=== PATIENT | female | born 1985 | race Caucasian/White ===

== ENCOUNTER 2019-03-12 20:54 | Emergency (ER) | payer OTHER ==
[2019-03-12 21:05] VITALS: TEMP 98; BMI 25.0
--- NOTE | 2019-03-12 21:07 | PDOC ---
Rapid Medical Evaluation Medical Evaluation: Allergies Allergy/AdvReac Type Severity Reaction Status Date / Time amoxicillin Allergy Verified 03/12/19 21:00 03/12/19 21:02 Pt presents to the ER with RLQ pain/flank pain since 5pm this evening. Pt was here with similar issues one month ago and diagnosed with an ovarian cyst. Denies n/v, dysuria, hematuria. Last period was 02/21 Exam: TTP RLQ/adenxal area, R flank pain Orders: Labs, TVUS, IV, urine Pt to proceed to the ER for further evaluation Discharge Disposition - Diagnosis Abdominal pain Qualifiers: Abdominal location: right lower quadrant Qualified Code(s): R10.31 - Right lower quadrant pain - Referrals - Patient Instructions - Post Discharge Activity
[2019-03-12 21:41] LABS: EOS % 0.8 % (0-4.5); HEMATOCRIT 37.6 % (32.4-45.2); HEMOGLOBIN 12.4 GM/dL (10.7-15.3); LYMPH % 30.1 % (8-40); MCH 30.5 pg (25.7-33.7); MCHC 32.9 g/dl (32.0-36.0); MEAN CELL VOLUME 92.7 fl (80-96); MEAN PLT VOLUME 9.2 fl (7.5-11.1); NEUT % 62.1 % (42.8-82.8); PLATELET COUNT 303 K/MM3 (134-434); RBC 4.06 M/mm3 (3.60-5.2); RDW 13.4 % (11.6-15.6); WHITE BLOOD COUNT 14.6 K/mm3 (4.0-10.0)
[2019-03-12 21:42] LABS: URINE APPEARANCE CLEAR; URINE BILIRUBIN NEGATIVE (NEGATIVE); URINE COLOR YELLOW; URINE GLUCOSE (UA) NEGATIVE (NEGATIVE); URINE KETONE TRACE (NEGATIVE); URINE LEUK ESTERASE NEGATIVE (NEGATIVE); URINE NITRITE NEGATIVE (NEGATIVE); URINE PROTEIN NEGATIVE (NEGATIVE)
[2019-03-12] MEDS ORDERED: LIDOCAINE PATCH REMOVAL MC SCH (22:00)
[2019-03-12 22:13] LABS: ALBUMIN 3.7 g/dl (3.4-5.0); BILIRUBIN,TOTAL 0.4 mg/dL (0.2-1); BLOOD UREA NITROGEN 10.4 mg/dL (7-18); CALCIUM 8.9 mg/dL (8.5-10.1); CREATININE 0.7 mg/dL (0.55-1.3); POTASSIUM 4.1 mmol/L (3.5-5.1); TOT PROT 6.9 g/dl (6.4-8.2)
--- NOTE | 2019-03-12 22:50 | PDOC ---
Attending Attestation - Resident Resident Name: OrlandoZainab - ED Attending Attestation I have performed the following: I have examined & evaluated the patient, The case was reviewed & discussed with the resident, I agree w/resident's findings & plan - HPI HPI: 03/12/19 22:52 Pt comes with Right flank pain. SHe was here recently for the same and SONO and CT scan showed a normal appendix and a right ovarian cyst. 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 Pt has no abd pain and no nausea vomiting and no fever. She has been taking tylenol for the pain and now has spasmed muscles of the back 03/12/19 23:14 Pt's labs are normal, and UA normal. She describes having some hesitance with urination; however we will not treat. Pt will be treated with toradol and muscle relaxants - Physicial Exam PE: 03/12/19 22:53 Agree with resident exam 03/12/19 23:17 No abd pain and no rebound. She has pain to the right flank with deep pressure , but not with percussion. She has no nidline tenderness and the pain doesn't radiate to the legs. - Medical Decision Making 03/12/19 22:52 WBC is elevated, but all other labs are normal Pt has ketones in her urine. 03/12/19 23:18 Pt will be reevaluated after meds. 03/12/19 23:18 Home with NSAIDS and muscle relaxants and lidoderm patches. 03/12/19 23:45 Pt received her meds. She will be discharged if she feels better
[2019-03-12] MEDS ORDERED: SODIUM CHLORIDE 0.9% 500 ML INFUS.BAG IV ONE (22:52)
[2019-03-12] MEDS ORDERED: KETOROLAC TROMETHAMINE 60 MG/2 ML VIAL IM ONE (23:04)
[2019-03-12] MEDS ORDERED: LIDOCAINE 5% TOPICAL PATCH TP ONE (23:06)
--- NOTE | 2019-03-12 23:08 | PDOC ---
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 Pt was seen 1 month ago , for RLQ pain, which showed a small R ovarian cyst. Pt states this pain is different, occurring along her R lower back, and is worsened by movement and bending. 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 Pt denies any recent fevers/chills, headache, vision changes, syncope, chest pain, palpitations, SOB, nausea/vomiting, abdominal pain, urinary symptoms, diarrhea/ constipation, or leg swelling. Allergies: NKDA PCP: Dr. Stanley Social: Pt denies any cigarette, alcohol, or drug use. Pt denies any recent travel or sick contacts. Surgical: no relevant history. Family: no relevant history. 03/12/19 23:06 03/12/19 23:09 Past History - Travel Traveled outside of the country in the last 30 days: No Close contact w/someone who was outside of country & ill: No - Past Medical History Allergies/Adverse Reactions: Allergies Allergy/AdvReac Type Severity Reaction Status Date / Time amoxicillin Allergy Verified 03/12/19 21:00 Home Medications: Ambulatory Orders Ibuprofen 600 mg PO Q6H #30 tablet 01/25/19 Ibuprofen [Motrin -] 600 mg PO TID #30 tablet 03/12/19 Lidocaine 5% Patch [Lidoderm Patch -] 1 patch TP DAILY #30 patch 03/12/19 Methocarbamol [Robaxin -] 500 mg PO TID #30 tablet 03/12/19 COPD: No - Immunization History Immunization Up to Date: No - Psycho Social/Smoking Cessation Hx Smoking History: Never smoked Have you smoked in the past 12 months: No Hx Alcohol Use: No Drug/Substance Use Hx: No Trauma Specific PMHX - Complaint Specific PMHX Arthritis: No Back Injury: No Neck Injury: No Hx Sacro Iliac Joint Dysfunction: No Review of Systems - Review of Systems Able to Perform ROS?: No (poor historian) Is the patient limited Macedonian proficient: Yes *Physical Exam - Vital Signs Last Vital Signs Temp Pulse Resp BP Pulse Ox 98 F 60 18 116/65 100 03/12/19 21:00 03/12/19 21:00 03/12/19 21:00 03/12/19 21:00 03/12/19 21:00 - Physical Exam Comments: Vitals stable, pt afebrile. Pt in NAD, normal body habitus. Pt appears to be in pain with walking and flexion or extension at the hip. Pt alert and oriented x3. 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 No midline spinal tenderness, step-offs, or crepitus. +reproducible R paraspinal TTP. Head normocephalic, atraumatic. Eyes PERRLA, EOMI. Oropharynx without erythema or exudates, no LAD b/l. No nasal congestion. Hearing intact. Clear heart sounds, S1/S2, no JVD, b/l pedal edema, or heart murmur. Clear lung sounds, no respiratory distress, wheezes, crackles, or accessory muscle use. No abdominal or CVA tenderness to palpation, no rebound, no guarding. Abdomen soft, non-distended, and with normoactive bowel sounds. Skin without jaundice or rash. 03/12/19 23:13 ED Treatment Course - LABORATORY CBC & Chemistry Diagram: 03/12/19 21:30 03/12/19 21:30 - ADDITIONAL ORDERS Additional order review: Laboratory Results 03/12/19 03/12/19 03/12/19 21:30 21:30 21:30 Sodium 140 Potassium 4.1 Chloride 105 Carbon Dioxide 25 Anion Gap 9 BUN 10.4 Creatinine 0.7 Est GFR (CKD-EPI)AfAm 131.94 Est GFR (CKD-EPI)NonAf 113.84 Random Glucose 91 Calcium 8.9 Total Bilirubin 0.4 AST 17 ALT 19 Alkaline Phosphatase 66 Total Protein 6.9 Albumin 3.7 Urine Color Yellow Urine Appearance Clear Urine pH 7.0 D Ur Specific Maupin 1.017 Urine Protein Negative Urine Glucose (UA) Negative Urine Ketones Trace H Urine Blood Negative Urine Nitrite Negative Urine Bilirubin Negative Urine Urobilinogen 1.0 Ur Leukocyte Esterase Negative Urine HCG, Qual Negative 03/12/19 21:30 RBC 4.06 MCV 92.7 MCHC 32.9 RDW 13.4 MPV 9.2 Neutrophils % 62.1 Lymphocytes % 30.1 Monocytes % 6.0 Eosinophils % 0.8 Basophils % 1.0 Medical Decision Making - Medical Decision Making Pt was seen at bedside, also will be seen by attending Dr. Sena. Pt presenting with complaints of R-sided lower back pain that is reproducible, and induced with lying back on the bed. Labs done in [facility], showed no blood in the urine, elevated WBC likely reactive to pain/inflammation. No evidence of UTI or blood to suggest nephrolithiasis. Provided 60 IM toradol, lidocaine patch, and 1 g robaxin for improvement of muscle spasm. Will continue to reassess pt and monitor for symptomatic improvement. 03/12/19 23:14 Pt pain significantly improved after interventions. Pt safe for d/c to home with . Strict return precautions provided with pt understanding. 03/12/19 23:46 Discharge - Discharge Information Problems reviewed: Yes Clinical Impression/Diagnosis: Back spasm Condition: Improved Disposition: HOME - Admission No - Additional Discharge Information Prescriptions: Ibuprofen [Motrin -] 600 mg PO TID #30 tablet Lidocaine 5% Patch [Lidoderm Patch -] 1 patch TP DAILY #30 patch Methocarbamol [Robaxin -] 500 mg PO TID #30 tablet - Follow up/Referral Referrals: Maryann Desai MD [Primary Care Provider] - - Patient Discharge Instructions Patient Printed Discharge Instructions: DI for Back Spasm Additional Instructions: You were seen in the ER today for back pain, which is likely due to muscle spasm and improved with medication. Please follow-up with your primary care doctor within 1-2 days to discuss your visit and make sure your symptoms have improved. Please return to the ER if you have any worsening pain, development of fevers or chills, loss of consciousness, inability to tolerate food or fluids , or any other concerns. I have sent medications to your pharmacy. Please take these medications as prescribed. You can take tylenol or motrin every 4-6 hours as needed for pain. - Post Discharge Activity Work/Back to School Note: Back to Work
[2019-03-12] MEDS ORDERED: METHOCARBAMOL 500 MG TABLET PO ONE (23:09)
[2019-03-12] MEDS ORDERED: METHOCARBAMOL 500 MG TABLET ONE (23:23)
[2019-03-12] MEDS ORDERED: KETOROLAC TROMETHAMINE 60 MG/2 ML VIAL ONE (23:24)
[2019-03-12] MEDS ORDERED: LIDOCAINE 5% TOPICAL PATCH ONE (23:24)
[2019-03-13 00:03] VITALS: BP 115/60; PULSE 62
== END 2019-03-13 00:01 | disposition home or self-care (01) ==
LOC: JER 20:54
PROC: 3E0233Z Introduction of Anti-inflammatory into Muscle, Percutaneous Approach (ICD-10-PCS; principal; 2019-03-12)
DX: M62.830 Muscle spasm of back (principal); Z88.8 Allergy status to other drugs, medicaments and biological substances
CPT/HCPCS: 36415; 80053; 81003; 84703; 85025; 87086; 99282-25

== ENCOUNTER 2019-06-26 12:49 | Emergency (ER) | payer OTHER ==
[2019-06-26 12:56] VITALS: BP 122/66; PULSE 75; TEMP 98; BMI 25.0
--- NOTE | 2019-06-26 13:58 | PDOC ---
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) Past History - Past Medical History Allergies/Adverse Reactions: Allergies Allergy/AdvReac Type Severity Reaction Status Date / Time amoxicillin Allergy Verified 06/26/19 12:56 Home Medications: Ambulatory Orders Ibuprofen 600 mg PO Q6H #30 tablet 01/25/19 Ibuprofen [Motrin -] 600 mg PO TID #30 tablet 03/12/19 Lidocaine 5% Patch [Lidoderm Patch -] 1 patch TP DAILY #30 patch 03/12/19 Methocarbamol [Robaxin -] 500 mg PO TID #30 tablet 03/12/19 COPD: No - Immunization History Immunization Up to Date: No - Psycho Social/Smoking Cessation Hx Smoking History: Never smoked Have you smoked in the past 12 months: No Information on smoking cessation initiated: No Hx Alcohol Use: No Drug/Substance Use Hx: No *Physical Exam - Vital Signs Last Vital Signs Temp Pulse Resp BP Pulse Ox 98 F 75 18 122/66 98 06/26/19 12:53 06/26/19 12:53 06/26/19 12:53 06/26/19 12:53 06/26/19 12:53 - Physical Exam General Appearance: No: Apparent Distress HEENT: positive: Normal Voice, Pharyngeal Erythema (minimal). negative: Muffled/Hoarse voice, Tonsillar Exudate, Tonsillar Erythema Respiratory/Chest: positive: Lungs Clear, Normal Breath Sounds. negative: Respiratory Distress Cardiovascular: positive: Regular Rhythm, Regular Rate, S1, S2. negative: Murmur Gastrointestinal/Abdominal: positive: Normal Bowel Sounds, Soft. negative: Tender, Distended, Guarding, Rebound Integumentary: positive: Normal Color Neurologic: positive: Alert Medical Decision Making - Medical Decision Making 34-year-old female history of hyperlipidemia presents with sore throat for 3 days along with mild dry cough and nasal congestion. Was seen at [facility] 2 days, started azithromycin which patient is taking. Patient came into the ER today for further evaluation. Mentions she is feeling a little bit better than before. Denies fever, shortness of breath, chest pain, abdominal pain, nausea, vomiting, diarrhea, urinary symptoms, rash. Patient also requesting a note for work Patient appears well Physical exam unremarkable Stable for discharge 06/26/19 13:56 Discharge - Discharge Information Problems reviewed: Yes Clinical Impression/Diagnosis: Sore throat Condition: Stable Disposition: HOME - Admission No - Additional Discharge Information Prescription Drug Monitoring Program (I-STOP) results: I-STOP not reviewed - Follow up/Referral Referrals: Maryann Desai MD [Primary Care Provider] - 2 Days - Patient Discharge Instructions Patient Printed Discharge Instructions: DI for Viral Pharyngitis Additional Instructions: Thank you for choosing [facility]. It was a pleasure taking care of you. You may take Tylenol 650 mg or Motrin 600 mg every 6 hours by mouth as needed for mild to moderate pain. Take Motrin with food. Do not take more than 4000 mg of Tylenol in 1 day. Please finish the antibiotics that were prescribed Follow-up with your doctor in 2 days Return to the Emergency Department if your symptoms worsen or persist or have other concerning symptoms. Carson por elegir el [facility]. Fue un placer cuidar de ti. Puede ghassan Tylenol 650 mg o Motrin 600 mg cada 6 horas por va oral segn sea necesario para el dolor leve a moderado. Rupal Motrin con comida. No tome ms de 4000 mg de Tylenol en 1 da. Por favor termine los antibiticos que le recetaron Seguimiento con galicia mdico en 2 flannery. Regrese al departamento de emergencias si ronny sntomas empeoran o persisten o si tiene otros sntomas preocupantes. Print Language: TUNISIAN - Post Discharge Activity
== END 2019-06-26 14:06 | disposition home or self-care (01) ==
LOC: JERFT 12:49
DX: J02.9 Acute pharyngitis, unspecified (principal); B97.89 Other viral agents as the cause of diseases classified elsewhere
CPT/HCPCS: 99282-25

== ENCOUNTER 2020-03-28 15:06 | Emergency (ER) | payer OTHER ==
[2020-03-28 15:10] VITALS: BP 106/77; PULSE 84; TEMP 98; BMI 21.4
[2020-03-28] MEDS ORDERED: MAG HYDROX/AL HYDROX/SIMETH -MYLANTA- ORAL SUSPENSION PO ONE (17:01)
[2020-03-28] MEDS ORDERED: FAMOTIDINE 20 MG/50 ML IVPB 20 MG/50 ML MG IVPB ONE ×2 (17:01→17:55)
[2020-03-28] MEDS ORDERED: ONDANSETRON 4 MG/2 ML VIAL IVPUSH ONE (17:01)
[2020-03-28] MEDS ORDERED: ONDANSETRON 4 MG/2 ML VIAL ONE (17:55)
[2020-03-28] MEDS ORDERED: MAG HYDROX/AL HYDROX/SIMETH 30 ML UNIT-DOSE CUP ONE (17:55)
[2020-03-28 18:37] LABS: BASO % 0.3 % (0-2.0); EOS % 0.8 % (0-4.5); HEMATOCRIT 36.2 % (32.4-45.2); HEMOGLOBIN 12.1 GM/dL (10.7-15.3); LYMPH % 22.8 % (8-40); MCHC 33.3 g/dl (32.0-36.0); MEAN CELL VOLUME 93.1 fl (80-96); MEAN PLT VOLUME 9.5 fl (7.5-11.1); MONO % 6.3 % (3.8-10.2); NEUT % 69.8 % (42.8-82.8); PLATELET COUNT 293 K/MM3 (134-434); RBC 3.89 M/mm3 (3.60-5.2); RDW 13.6 % (11.6-15.6); WHITE BLOOD COUNT 10.9 K/mm3 (4.0-10.0)
[2020-03-28 18:39] LABS: URINE APPEARANCE CLEAR; URINE BILIRUBIN NEGATIVE (NEGATIVE); URINE COLOR YELLOW; URINE GLUCOSE (UA) NEGATIVE (NEGATIVE); URINE KETONE NEGATIVE (NEGATIVE); URINE LEUK ESTERASE NEGATIVE (NEGATIVE); URINE NITRITE NEGATIVE (NEGATIVE); URINE PROTEIN NEGATIVE (NEGATIVE); URINE UROBILINOGEN 0.2 mg/dL (0.2-1.0)
[2020-03-28 18:48] LABS: HCG,QUALITATIVE URINE Negative
[2020-03-28 18:53] LABS: ALBUMIN 3.8 g/dl (3.4-5.0); BLOOD UREA NITROGEN 9.3 mg/dL (7-18); CALCIUM 8.6 mg/dL (8.5-10.1)
[2020-03-28 18:56] LABS: CREATININE 0.7 mg/dL (0.55-1.3)
[2020-03-28 18:57] LABS: BILIRUBIN,TOTAL 0.5 mg/dL (0.2-1)
[2020-03-28 18:58] LABS: TOT PROT 7.3 g/dl (6.4-8.2)
== END 2020-03-28 20:50 | disposition home or self-care (01) ==
LOC: JER 15:06
PROC: 3E033GC Introduction of Other Therapeutic Substance into Peripheral Vein, Percutaneous Approach (ICD-10-PCS; principal; 2020-03-28)
PROC: 3E033GC Introduction of Other Therapeutic Substance into Peripheral Vein, Percutaneous Approach (ICD-10-PCS; 2020-03-28)
DX: R10.13 Epigastric pain (principal)
CPT/HCPCS: 36415; 80053; 81003; 83690; 84703; 85025; 99284-25

== ENCOUNTER 2021-06-30 18:11 | Emergency (ER) | payer OTHER ==
[2021-06-30 18:25] VITALS: BMI 23.6
[2021-06-30] MEDS ORDERED: ACETAMINOPHEN 500 MG TABLET (FP) PO ONE (18:41)
[2021-06-30] MEDS ORDERED: ACETAMINOPHEN 325 MG TABLET (FP) ONE (18:51)
[2021-06-30 19:26] LABS: URINE APPEARANCE CLOUDY; URINE BILIRUBIN NEGATIVE (NEGATIVE); URINE COLOR YELLOW; URINE GLUCOSE (UA) NEGATIVE (NEGATIVE); URINE KETONE NEGATIVE (NEGATIVE); URINE LEUK ESTERASE NEGATIVE (NEGATIVE); URINE NITRITE NEGATIVE (NEGATIVE); URINE PROTEIN NEGATIVE (NEGATIVE); URINE UROBILINOGEN 0.2 mg/dL (0.2-1.0)
[2021-06-30 19:28] LABS: HCG,QUALITATIVE URINE Negative
[2021-06-30 19:59] VITALS: BP 99/68; PULSE 90; TEMP 98.5
[2021-07-01 12:08] LABS: SARS-CoV-2 NAA Not Detected (Not Detected)
== END 2021-06-30 20:23 | disposition home or self-care (01) ==
LOC: JER 18:11
DX: J09.X2 Influenza due to identified novel influenza A virus with other respiratory manifestations (principal)
CPT/HCPCS: 81003; 84703; 87086; 87651; 87804; 99283-25; C9803; U0003; U0005

== ENCOUNTER 2021-12-26 09:55 | Emergency (ER) | payer OTHER ==
[2021-12-26 10:07] VITALS: BP 101/65; PULSE 79; RESP 16; TEMP 98.3; BMI 23.3
[2021-12-26 12:43] LABS: PH,URINE 7.5 (5.0-8.0); URINE APPEARANCE CLEAR; URINE BILIRUBIN NEGATIVE (NEGATIVE); URINE COLOR YELLOW; URINE GLUCOSE (UA) NEGATIVE (NEGATIVE); URINE KETONE NEGATIVE (NEGATIVE); URINE LEUK ESTERASE NEGATIVE (NEGATIVE); URINE NITRITE NEGATIVE (NEGATIVE); URINE PROTEIN NEGATIVE (NEGATIVE); URINE UROBILINOGEN 0.2 mg/dL (0.2-1.0)
== END 2021-12-26 14:44 | disposition home or self-care (01) ==
LOC: JERFT 09:55
DX: R10.30 Lower abdominal pain, unspecified (principal); Z3A.12 12 weeks gestation of pregnancy
CPT/HCPCS: 36415; 76801-TC; 81003; 84702; 87086; 99284-25

== ENCOUNTER 2022-04-20 09:59 | Emergency (ER) | payer OTHER ==
[2022-04-20 10:13] VITALS: RESP 18; BMI 24.7
[2022-04-20 12:32] VITALS: BP 124/62; PULSE 65; TEMP 97.7
== END 2022-04-20 13:08 | disposition home or self-care (01) ==
LOC: JER 09:59
DX: O98.512 Other viral diseases complicating pregnancy, second trimester (principal); U07.1 COVID-19; Z3A.24 24 weeks gestation of pregnancy
CPT/HCPCS: 99283-25

== ENCOUNTER 2022-07-05 11:45 | Inpatient (IN) | payer OTHER ==
[2022-07-05] MEDS ORDERED: CITRIC ACID/SODIUM CITRATE 30 ML UNIT-DOSE CUP PO ONE (12:46)
[2022-07-05] MEDS: ELECTROLYTE-148 SOLN 1,000 ML IV SCH ×3 (12:50→15:37)
[2022-07-05 13:16] VITALS: BMI 25.9
[2022-07-05] MEDS ORDERED: morphine SULFATE/PF 1 MG/2 ML (2cc Syringe - QUVA) EP ONE (13:48)
[2022-07-05] MEDS ORDERED: ACETAMINOPHEN 325 MG TABLET (FP) PO PRN ×2 (13:48→15:03)
[2022-07-05] MEDS ORDERED: IBUPROFEN 600 MG TABLET (FP) PO PRN (13:48)
[2022-07-05] MEDS ORDERED: ONDANSETRON 4 MG/2 ML VIAL IVPUSH PRN (13:48)
[2022-07-05] MEDS ORDERED: SODIUM CHLORIDE 0.9% P/F 10 ML VIAL IJ ONE (14:05)
[2022-07-05] MEDS ORDERED: ceFAZolin SODIUM 1 GM VIAL ONE (14:05)
[2022-07-05] MEDS ORDERED: morphine SULFATE (PF) 1 MG/2 ML SYRINGE ONE (14:18)
[2022-07-05] MEDS ORDERED: PHENYLEPHRINE HCL 10 MG/1 ML SINGLE DOSE VIAL ONE (14:31)
[2022-07-05] MEDS ORDERED: OXYTOCIN 10 UNITS/ML VIAL ONE ×2 (14:32→14:58)
[2022-07-05] MEDS ORDERED: ONDANSETRON 4 MG/2 ML VIAL ONE (14:46)
[2022-07-05] MEDS ORDERED: WITCH HAZEL 50% (TUCKS) 40 PAD/JAR PAD TP PRN (15:03)
[2022-07-05] MEDS ORDERED: IBUPROFEN 800 MG/8 ML IJ IVPB PRN (15:03)
[2022-07-05] MEDS ORDERED: METHYLERGONOVINE MALEATE 0.2 MG/1 ML AMP IM PRN (15:03)
[2022-07-05] MEDS: FERROUS SO4 325 MG TABLET (FP) PO SCH (17:07)
[2022-07-05] MEDS: OXYTOCIN 20 UNITS in 0.9% NS 20 UNIT/1,000 ML INFUS.BAG IV SCH (19:01)
[2022-07-05] MEDS: SIMETHICONE 80 MG TAB.CHEW (FP) PO PRN (19:47)
[2022-07-06] MEDS: OXYTOCIN 20 UNITS in 0.9% NS 20 UNIT/1,000 ML INFUS.BAG IV SCH ×2 (02:52→15:08)
[2022-07-06] MEDS ORDERED: oxyCODONE HCL 5 MG TABLET PO PRN (03:03)
[2022-07-06] MEDS: SIMETHICONE 80 MG TAB.CHEW (FP) PO PRN ×2 (06:16→12:11)
[2022-07-06 08:04] LABS: BASO % 0.3 % (0-2.0); EOS % 0.6 % (0-4.5); HEMATOCRIT 31.2 % (32.4-45.2); HEMOGLOBIN 10.8 GM/dL (10.7-15.3); LYMPH % 11.6 % (8-40); MCH 32.1 pg (25.7-33.7); MCHC 34.6 g/dl (32.0-36.0); MEAN CELL VOLUME 92.7 fl (80-96); MEAN PLT VOLUME 9.4 fl (7.5-11.1); MONO % 10.9 % (3.8-10.2); NEUT % 76.6 % (42.8-82.8); PLATELET COUNT 212 10^3/uL (134-434); RBC 3.36 M/mm3 (3.60-5.2); WHITE BLOOD COUNT 13.7 K/mm3 (4.0-10.0)
[2022-07-06] MEDS: PRENATAL VITAMINS W/ FOLIC ACID TABLET (FP) PO SCH (09:00)
[2022-07-06] MEDS: FERROUS SO4 325 MG TABLET (FP) PO SCH ×2 (09:00→17:09)
[2022-07-06] MEDS: ELECTROLYTE-148 SOLN 1,000 ML IV SCH (12:29)
[2022-07-06] MEDS ORDERED: BISACODYL 10 MG SUPP.RECT RC PRN (15:03)
[2022-07-06] MEDS: IBUPROFEN 600 MG TABLET (FP) PO PRN (18:14)
[2022-07-07] MEDS: IBUPROFEN 600 MG TABLET (FP) PO PRN ×3 (07:11→23:37)
[2022-07-07] MEDS: FERROUS SO4 325 MG TABLET (FP) PO SCH ×2 (07:12→16:48)
[2022-07-07] MEDS: SIMETHICONE 80 MG TAB.CHEW (FP) PO PRN ×3 (07:12→23:38)
[2022-07-07] MEDS: PRENATAL VITAMINS W/ FOLIC ACID TABLET (FP) PO SCH (09:14)
[2022-07-08 07:11] LABS: BASO % 0.3 % (0-2.0); EOS % 1.8 % (0-4.5); HEMATOCRIT 26.8 % (32.4-45.2); HEMOGLOBIN 9.7 GM/dL (10.7-15.3); LYMPH % 25.7 % (8-40); MCHC 36.2 g/dl (32.0-36.0); MEAN CELL VOLUME 91.1 fl (80-96); MONO % 9.4 % (3.8-10.2); NEUT % 62.8 % (42.8-82.8); PLATELET COUNT 222 10^3/uL (134-434); RBC 2.94 M/mm3 (3.60-5.2); RDW 15.3 % (11.6-15.6); WHITE BLOOD COUNT 10.1 K/mm3 (4.0-10.0)
[2022-07-08] MEDS: FERROUS SO4 325 MG TABLET (FP) PO SCH (09:02)
[2022-07-08] MEDS: IBUPROFEN 600 MG TABLET (FP) PO PRN (09:02)
[2022-07-08] MEDS: SIMETHICONE 80 MG TAB.CHEW (FP) PO PRN (09:02)
[2022-07-08] MEDS: PRENATAL VITAMINS W/ FOLIC ACID TABLET (FP) PO SCH (09:02)
[2022-07-08 11:03] VITALS: BP 115/69; PULSE 60; RESP 18; TEMP 98
== END 2022-07-08 11:30 | disposition home or self-care (01) | DRG 540 ==
LOC: JLDR 11:45 → J3W 16:15
PROVIDERS: ADMIT Obstetrics & Gynecology; ATTEND Obstetrics & Gynecology
PROC: 10D00Z1 Extraction of Products of Conception, Low, Open Approach (ICD-10-PCS; principal; 2022-07-05)
DX: O34.219 Maternal care for unspecified type scar from previous cesarean delivery (principal); Z3A.39 39 weeks gestation of pregnancy; Z37.0 Single live birth
CPT/HCPCS: 36415; 59025; 71046-TC-FY; 80048; 85025; 85610; 85730; 86780; 86850; 86900; 86901; 88307-TC; C9803-CS; U0003; U0005